=== PATIENT | female | born 1985 | race Caucasian/White ===

== ENCOUNTER 2017-05-28 08:13 | Inpatient (IN) | payer BC, OTHER ==
[~2017-05-28] VITALS: Ht 172.7 cm; Wt 56.7 kg
[2017-05-28] MEDS ORDERED: DICL35CA PO (12:23)
[2017-05-28] MEDS ORDERED: CLON0.5T4 PO (12:24)
[2017-05-28] MEDS ORDERED: [UNRECOGNIZED DRUG - OTHER] (12:27)
[2017-05-28] MEDS ORDERED: CLON0.1T PO (12:28)
[2017-05-28] MEDS ORDERED: ONDA4TAB5 PO (12:28)
[2017-05-28] MEDS ORDERED: CLON0.2T PO (12:29)
[2017-05-28] MEDS ORDERED: LITH300T3 PO (12:30)
--- NOTE | 2017-05-28 12:30 | NUR ---
Admission Note VS: BP: 115/68 HR:/80, SpO2: 99% RA, RR: 18, Temp: 98.5 Pain:3/10 (Headache) Height:5'8" Weight: 128LB Allergies: CHRISTIANAA Pt is a 31 y/o female admitted to [facility] on 05/28/17 at 1230. Pt is under the care of Dr. Ramos for cocaine dependence. Pt reports Hx of prescription use of Oxycodone, fentanyl and Klonopin. Pt denies suicidal and homicidal ideations at this time. Pt denies Chest Pain and SOB. Pt brought home medications with her, they have all been documented and reconciled. PT reports living with her parents and her support system consists of her parents and friends. Upon assessment pt's skin integrity is intact. COWS 4, CIWA 6 upon admission. A/Ox4 and able to answer questions necessary for the admission process. Pt is Full Code. VS WNL, Regular Diet. Denies Family Hx of substance abuse. Pt denies having any seizures in the past . Pt denies having a PCP at this time. Breathing is even and unlabored, SpO2 is 99% on RA. Pt ambulates with steady gait. Pt reports regular daily BM. LBM on 05/27/17. Pt reports that she does not regularly smoke. 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 Dr. Ramos has been notified, pt has not been placed on a taper at this time and her symptoms will be managed by PRN medications. Urine has been collected for UDS and test. All needs have been met. Pt has been oriented to the room and the unit. All safety measures in place per hospital policy. Bed in lowest position, side rails up x2 and padded, call-light within reach. Will continue to monitor. Substance Abuse: Cocaine: 3-5g IV daily for 3 months. Last Use: 05/26/17 1g IV [place]: 0.25g-0.5g smoked daily for 5 years. Last use: 05/28/17 0.25g Oxycodone: 15mg orally 3-4x a week. Last use: 05/24/17 fentanyl: used one time today.
[2017-05-28 12:33] LABS: *URINE HCG, QUAL NEGATIVE (NEGATIVE)
[2017-05-28 12:43] LABS: *AMPHETAMINE, URINE NEGATIVE (NEGATIVE); *BARBITURATE, URINE NEGATIVE (NEGATIVE); *CANNABINOID, URINE POSITIVE (NEGATIVE); *COCCAINE, URINE POSITIVE (NEGATIVE); *OPIATE, URINE NEGATIVE (NEGATIVE); *PHENCYCLIDINE SCREEN,URINE NEGATIVE (NEGATIVE)
[2017-05-28 15:33] LABS: ETHANOL < 3 MG/DL (0-0)
[2017-05-28 15:35] LABS: ALANINE AMINOTRANSFERASE 26 U/L (14-59); ALKALINE PHOSPHATASE 46 U/L (50-136); ASPARTATE AMINOTRANSFERASE 28 U/L (15-37); BILIRUBIN,TOTAL 0.3 mg/dL (0.2-1.0); CARBON DIOXIDE 33 mmol/L (21-32); CHLORIDE 104 mmol/L (98-107); CREATININE 1.2 mg/dL (0.6-1.3); GLUCOSE 78 mg/dL (74-106); MAGNESIUM 1.9 mg/dL (1.8-2.4); POTASSIUM 3.8 mmol/L (3.5-5.1); TOTAL PROTEIN, SERUM 7.2 g/dL (6.4-8.2); UREA NITROGEN, BLOOD 14 mg/dL (7-18)
[2017-05-28 15:36] LABS: BASOPHILS # (AUTO) 0.1 K/uL (0.0-8.0); BASOPHILS % (AUTO) 0.8 % (0.0-2.0); EOSINOPHILS # (AUTO) 0.3 K/uL (0.0-0.7); EOSINOPHILS % (AUTO) 3.5 % (0.0-7.0); HEMATOCRIT 33.8 % (37-47); HEMOGLOBIN 10.9 G/DL (12.0-16.0); LYMPHOCYTES # (AUTO) 3.1 K/UL (0.8-4.8); LYMPHOCYTES % (AUTO) 38.4 % (20.5-51.5); MEAN CORPUSCULAR HEMOGLOBIN 26.3 UUG (27.0-31.0); MEAN CORPUSCULAR HGB CONC 32 g/dL (32.0-37.0); MEAN CORPUSCULAR VOLUME 81.4 FL (81.0-99.0); MONOCYTES # (AUTO) 0.7 K/UL (0.1-1.30); MONOCYTES % (AUTO) 9.1 % (0.0-11.0); NEUTROPHILS # (AUTO) 3.8 K/UL (1.8-8.9); NEUTROPHILS % (AUTO) 48.2 % (38.5-71.5); PLATELET COUNT (AUTO) 262 K/UL (150-450); RED BLOOD CELL COUNT(AUTO) 4.15 MIL/UL (4.2-5.4)
--- NOTE | 2017-05-28 15:50 | NUR ---
PRN Medication Administered PRN Baclofen and Motrin for 6/10 body aches.
[2017-05-28 15:56] LABS: THYROID STIMULATING HORMONE 3.842 mIU/mL (0.358-3.740)
--- NOTE | 2017-05-28 16:20 | NUR ---
Medication re-assessment PT reports feeling comfortable and rates pain 3/10. Medications were effective.
--- NOTE | 2017-05-28 19:08 | NUR ---
End of Shift Endorsement given to nightshift nurse. Pt is a 31 y/o female admitted to [facility] on 05/28/17 at 1230. Pt is under the care of Dr. Ramos for cocaine dependence. Pt reports Hx of prescription use of Oxycodone, fentanyl and Klonopin. Pt denies suicidal and homicidal ideations at this time. Pt denies Chest Pain and SOB. Pt brought home medications with her, they have all been documented and reconciled. PT reports living with her parents and her support system consists of her parents and friends. Upon assessment pt's skin integrity is intact. COWS 4, CIWA 6 upon admission. A/Ox4 and able to answer questions necessary for the admission process. Pt is Full Code. VS WNL, Regular Diet. Denies Family Hx of substance abuse. Pt denies having any seizures in the past . Pt denies having a PCP at this time. Breathing is even and unlabored, SpO2 is 99% on RA. Pt ambulates with steady gait. Pt reports regular daily BM. LBM on 05/27/17. . 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 Dr. Ramos has been notified, pt has not been placed on a taper at this time and her symptoms will be managed by PRN medications. Urine has been collected for UDS and test. All needs have been met. Pt has been oriented to the room and the unit. All safety measures in place per hospital policy. Bed in lowest position, side rails up x2 and padded, call-light within reach. Will continue to monitor.
--- NOTE | 2017-05-28 19:15 | NUR ---
START OF SHIFT Received 31 year old female patient admitted on 05/28/17 for Cocaine and Marijuana dependency. Pt is full code with NKA. She reports a PMHx of Hep C+ and lyme disease. Pt reports using Cocaine 3-5 gram IV daily for 3 months. Last dose was 1 gram IV on 05/26/17. Marijuana 0.25 gram smoking daily for 5 years. Last dose was 0.25 gram on 05/28/17. Pt denies a history of seizures. Pt not placed on taper but has PRN medications available. Per endorsement, pt received PRN Baclofen. Pt is alert and oriented x4, breathing is even and unlabored. Safety measures in place. Will monitor.
[2017-05-28 20:00] VITALS: BP 101/54
--- NOTE | 2017-05-28 20:54 | NUR ---
PRN BENADRYL Pt complains of inability to sleep. PRN Benadryl administered as ordered. Safety measures in place. Will monitor.
--- NOTE | 2017-05-28 21:54 | NUR ---
PRN BENADRYL REASSESSMENT PRN medication effective. Pt lying in bed with eyes closed noted to be asleep. Respirations 16, breathing is even and unlabored. Safety measures in place. Will monitor.
[2017-05-29] VITALS: BP 116/70
--- NOTE | 2017-05-29 | NUR ---
COWS/CIWA DEFERRED Pt lying in bed with eyes closed noted to be asleep. Respirations 16, breathing is even and unlabored. Safety measures in place. Will monitor.
[2017-05-29 04:00] VITALS: BP 124/78
--- NOTE | 2017-05-29 04:00 | NUR ---
COWS/CIWA DEFERRED Pt lying in bed with eyes closed noted to be asleep. Respirations 16, breathing is even and unlabored. Safety measures in place. Will continue to monitor.
[2017-05-29 06:07] LABS: HEPATITIS B SURFACE AG Negative (Negative)
--- NOTE | 2017-05-29 07:13 | NUR ---
END OF SHIFT Pt is a 31 year old female patient admitted on 05/28/17 for Cocaine and Marijuana dependency. Pt is full code with NKA. She reports a PMHx of Hep C+ and lyme disease. She is not receiving a taper but has PRN medications available. At 2053 she received PRN Benadryl. She is not receiving a taper but has PRN medications available. She slept a total of 7 hrs, Intake: 651mL, Void: x3, BM:x1, COWS:5, CIWA:4. Pt remains alert and oriented x4, breathing is even and unlabored. Safety measures in place. Endorsed to oncoming shift.
[2017-05-29 08:00] VITALS: BP 119/54
--- NOTE | 2017-05-29 08:10 | NUR ---
START OF SHIFT NOTE Received pt aox4. Patient reports feeling tired. She was given PRN Benadryl per night nurse. No taper ordered. Pt refused Tb test this morning. Last COWS 5 CIWA 4 this am at 0800. She slept for 7 hours. Encouraged pt to attend groups and activities. Encouraged pt to increase fluid intake to facilitate detox. Will monitor closely and offer help.
[2017-05-29 12:00] VITALS: BP 111/58
[2017-05-29 16:00] VITALS: BP 118/66
--- NOTE | 2017-05-29 18:33 | NUR ---
END OF SHIFT NOTE NO TAPER ORDERED FOR PATIENT. NO PRNS GIVEN DURING SHIFT. PT DID NOT ATTEND GROUPS OR ACTIVITIES DURING SHIFT. SHE SLEPT IN BED MAJORITY OF SHIFT. SHE REFUSED TB. LAST COWS 6 CIWA 4. PT IS COMPLIANT WITH MEDICATIONS. VITAL SIGNS STABLE. NO DISTRESS NOTED. ALL NEEDS MET. ALL SAFETY MEASURES IN PLACE. ENDORSED TO NIGHT NURSE.
[2017-05-29 20:00] VITALS: BP 136/84
--- NOTE | 2017-05-29 20:00 | NUR ---
1999 Patient received awake, alert and sitting up on her bed watching television. Patient responds to nurse's greeting and introduction with a smile and, " Hi, how are you?" Patient's color is pink and her skin is clean, warm, dry and intact. Patient is oriented to person, place, day, date, time and her personal situation. Patient states that she is basically staying in her room, resting, watching TV, taking fluids ad dianna and eating her regular diet, though she has occasionally gone downstairs to hospital patio for smoke breaks. Vital sign are: 98.7-97-18 136/84, O2 Sat 99%, COWS 2 , CIWA 2 . Patient denies any acute pain presently, though she states that for the longest time she functioned often with a pain level of 8 plus, due to all the physical manifestations of her being infected with Lyme disease. Patient was admitted on 05/28/17 for Cocaine and Marijuana withdrawal and she is currently on PRN medications only for any withdrawal symptoms. Patient is friendly, cooperative and verbally appropriate when interacting with nurse. Patient voices no requests or complaints at this time. Bed is locked and put in the lowest position, bed rails are up X 1 and call light within patient's easy reach.
--- NOTE | 2017-05-29 20:48 | NUR ---
PRN MEDICATIONS: Prn Baclofen 20 mg p.o. given per request for c/o body spasms/cramps, Prn Ativan 1 mg p.o. given per request for c/o feeling shakey and very anxious, CIWA 5 and Prn Benadryl 50 mg p.o. given per request for sleep medication.
--- NOTE | 2017-05-29 21:48 | NUR ---
REASSESSMENT PRN MEDICATION: Patient is resting comfortably with eyes closed and respirations quiet, even, unlabored at 14.
[2017-05-30] VITALS: BP 110/72
--- NOTE | 2017-05-30 | NUR ---
V/S are: 98.2-78-16 136/84, O2 Sat 97%, COWS 1, CIWA 1. Patient resting comfortably.
--- NOTE | 2017-05-30 04:00 | NUR ---
Patient refused to be awakened for V/S to be done at this time.
--- NOTE | 2017-05-30 06:30 | NUR ---
0630 Patient slept a total of 7 hours and she had 3 voids and no stools. Total intake was 1,390 ml p.o. Prn medications given noted separately per floor protocol. V/SS afebrile, last COWS 1, Last CIWA 1 at 0000. Patient is presently resting comfortably with eyes closed and respirations quiet, even, unlabored at 12.
[2017-05-30 08:00] VITALS: BP 108/55
--- NOTE | 2017-05-30 08:09 | NUR ---
START OF SHIFT NOTE Received pt aox4. Patient reports feeling "ok just really tired." She was given PRN Benadryl, Baclofen, and Ativan per night nurse. No taper ordered.COWS 4 CIWA 2 this am at 0800. She slept for 7 hours. Encouraged pt to attend groups and activities. Encouraged pt to increase fluid intake to facilitate detox. Will monitor closely and offer help.
--- NOTE | 2017-05-30 08:10 | NUR ---
PRN MEDICATION MOTRIN GIVEN FOR C/O BACK PAIN 04/08 WILL REASSESS
--- NOTE | 2017-05-30 09:09 | NUR ---
PRN REASSESSMENT PATIENT SLEEPING SOUNDLY IN BED WITH RR EVEN AND UNLABORED. NO DISTRESS NOTED. WILL CONT TO MONITOR.
[2017-05-30 12:00] VITALS: BP 118/67
--- NOTE | 2017-05-30 14:17 | NUR ---
ENDORSED PT TO RAILROAD BAGGAGE [employer]TER[employer] Whitt
--- NOTE | 2017-05-30 14:18 | NUR ---
ASSUMED CARE Pt endorsement report received from primary nurse. All pertinent information discussed. Will cont to monitor. Safety measures in place.
[2017-05-30] MEDS ORDERED: DIPH50CA37 PO (15:21)
[2017-05-30] MEDS ORDERED: HYDR-3895 PO (15:21)
[2017-05-30] MEDS ORDERED: DICY20TA28 PO (15:21)
[2017-05-30] MEDS ORDERED: LEVO75TA7 PO (15:21)
[2017-05-30] MEDS ORDERED: BACL20TA PO (15:21)
[2017-05-30] MEDS ORDERED: GABA-534 PO (15:21)
[2017-05-30] MEDS ORDERED: LITH300C4 PO (15:21)
[2017-05-30] MEDS ORDERED: IBUP-1955 PO (15:21)
[2017-05-30 16:00] VITALS: BP 130/86
--- NOTE | 2017-05-30 17:25 | NUR ---
PRN MOTRIN/CLONIDINE Pt reported general body aches 4/10 and anxiety agitation, chills. pt was given PRN Motrin 600mg Po Clonidine 0.1mg Po as ordered. Will cont to monitor ad reassess.
--- NOTE | 2017-05-30 18:25 | NUR ---
MOTRIN/CLONIDINE REASSESSMENT Pt reported medication effective pain decreased to 1/10, and anxiety and agitation subside.
--- NOTE | 2017-05-30 19:25 | NUR ---
END OF SHIFT NOTE Patient alert and oriented x4, vital signs were stable during shift. Patient compliant with therapeutic plan of care. Patient currently not on any taper but PRN'S available for s/s of withdrawal. Patient encouraged adequate PO fluid intake as tolerated. Patient encouraged to attend group therapies/sessions to learn new coping skills. Pt noted attending and participating, patient denies SI/HI. Pt ate all of his meals his total fluid intake was 2275ml with 5 void and 1 bowel movement , PRN medications were administered during shift noted effective. Last CIWA score was 4, COWS-4 at 1600. Safety measures in place. Call light kept within reach. Patient endorsed to ruling machine set up operator nurse in stable condition.
[2017-05-30 20:00] VITALS: BP 138/89
--- NOTE | 2017-05-30 20:00 | NUR ---
1999 Patient received awake, alert and lying quietly in her bed. Patient responds to nurse's greeting with " Hi, yes I've been having more nerve pains today, mostly in my lower body." Patient states further that though she has not been attending [facility] groups, she does go downstairs to the hospital patio for smoke breaks and she visits with other [facility] patients there. Patient states that she has been eating her Regular diet meal trays and taking various fluids ad dianna with no gastric issues. Patient is oriented to person, place, day, date, time and her personal situation. Vital signs are: 99.1-91-18 138/89, O2 Sat 99%, COWS 2 , CIWA 2 . Patient's color is pink and her skin is clean, warm, dry and intact. Patient admitted on 05/28/17 for Cocaine and Marijuana withdrawal and she is presently on PRN medications only for any withdrawal symptoms. Patient states that any anxiety and physical symptoms that she has been experiencing in the last few days, has been due to her long standing diagnosis of Lyme Disease. Patient requests to have recently prescribed, Prn Harsh-mario ointment medication at her bedside for her prn use, per MD order. Patient informed that when medication is available, nurse will see that she receives it. Patient states, " Okay". Patient moves all her extremities fully WNL. Bed is locked and in lowest position, bed rails are up X 2 and call light within patient's easy reach.
--- NOTE | 2017-05-30 21:33 | NUR ---
PRN MEDICATION: Prn Benadryl 50 mg p.o. given per request for sleep medication.
--- NOTE | 2017-05-30 22:00 | NUR ---
Patient informed that requested Prn Harsh-mario medication is unavailable, until hospital pharmacy opens in AM, 05/31/17, per house nursing occupational therapy supervisor and [facility] Charge nurse, Wilberto. Patient states,. " Okay".
--- NOTE | 2017-05-30 22:33 | NUR ---
REASSESSMENT PRN MEDICATION: Patient is resting quietly in prone position of comfort, with eyes closed and respirations quiet, even, unlabored at 12.
--- NOTE | 2017-05-31 | NUR ---
Patient refused to be awakened for V/S, COWS, CIWA to be done at this time.
--- NOTE | 2017-05-31 04:00 | NUR ---
Patient refused to be awakened for V/S, COWS, CIWA to be done at this time.
--- NOTE | 2017-05-31 06:30 | NUR ---
0630 Patient slept a total of 8 hours, 15 mins and she had 3 voids and no stools. Total intake was 1,234 ml p.o. Prn medication given noted separately per floor protocol. V/SS afebrile, last COWS 2, last CIWA 2 at 1999. Patient is sleeping comfortably in stable condition, with eyes closed and respirations quiet, even, unlabored at 12.
--- NOTE | 2017-05-31 07:38 | NUR ---
START OF SHIFT NOTE: Received report from ell teacher nurse. Pt is a 31 year old female patient admitted on 05/28/17 for Cocaine and Marijuana dependency. Pt completed tapers. To be discharged this AM. Pt alert and oriented X4. Color good, skin warm and dry. Safety precautions observed. Call light within reach.
[2017-05-31 08:00] VITALS: BP 127/72
--- NOTE | 2017-05-31 08:00 | NUR ---
Pt c/o pain and does not want to leave. Dr. Ramos notified. VSS COWS 3 CIWA 4
[2017-05-31 08:40] VITALS: BP 127/76
--- NOTE | 2017-05-31 08:45 | NUR ---
Vistaril 50mg po prn and Clonidine 0.1mg po prn given per Dr. Ramos.
--- NOTE | 2017-05-31 08:59 | NUR ---
Toradol 60mg IM prn, Tylenol 1000mg po prn and Robaxin 750mg po prn given per Dr. Ramos.
--- NOTE | 2017-05-31 09:00 | NUR ---
Dr. Ramos in to see patient
--- NOTE | 2017-05-31 09:26 | NUR ---
Pt states feels "slightly improved" after prn meds.
--- NOTE | 2017-05-31 10:15 | NUR ---
Pt sleeping at this time.
--- NOTE | 2017-05-31 10:24 | NUR ---
Discharge papers and medication bag signed. Pt feels improved.
--- NOTE | 2017-05-31 10:34 | NUR ---
Pt discharged in stable condition with all valuables, belongings and home medications. Denies HI/SI. To [place] via [employer] private car.
== END 2017-05-31 10:30 | disposition other institution (70) | DRG 895 ==
LOC: SRC 10:48
PROVIDERS: ADMIT Internal Medicine; ATTEND Internal Medicine
PROC: HZ2ZZZZ Detoxification Services for Substance Abuse Treatment (ICD-10-PCS; principal; 2017-05-28)
PROC: HZ51ZZZ Individual Psychotherapy for Substance Abuse Treatment, Behavioral (ICD-10-PCS; 2017-05-30)
DX: F11.23 Opioid dependence with withdrawal (principal); E87.3 Alkalosis; A69.20 Lyme disease, unspecified; F14.20 Cocaine dependence, uncomplicated; F31.62 Bipolar disorder, current episode mixed, moderate; B19.20 Unspecified viral hepatitis C without hepatic coma; E03.9 Hypothyroidism, unspecified; F41.9 Anxiety disorder, unspecified; E86.0 Dehydration; Z79.899 Other long term (current) drug therapy; D63.8 Anemia in other chronic diseases classified elsewhere; G89.4 Chronic pain syndrome; F17.210 Nicotine dependence, cigarettes, uncomplicated
CPT/HCPCS: 36415; 80307; 80349; 80353; 83735; 84443; 84703; 85025; 86592; 86705; 86803; 87340; 87806; A4663; G0480; J1885; Q0163